=== PATIENT | male | born 1955 | race Caucasian/White ===

== ENCOUNTER 2023-11-11 12:55 | Outpatient (CLI) | payer MEDICARE | END 2023-11-11 12:56 | disposition home or self-care (01) | LOC: CSHULT 12:55 | PROVIDERS: ATTEND Psychiatry & Neurology Neurology | DX: G45.9 Transient cerebral ischemic attack, unspecified (principal); I65.29 Occlusion and stenosis of unspecified carotid artery; R93.89 Abnormal findings on diagnostic imaging of other specified body structures | CPT/HCPCS: 93880 ==